=== PATIENT | female | born 1985 ===

== ENCOUNTER 2023-09-27 08:27 | Outpatient (CLI) | payer OTHER ==
--- NOTE | 2023-09-27 10:08 | MRI Report ---
PROCEDURE: Lumbar Spine WO INDICATIONS: L HIP PAIN, LOW BACK PAIN TECHNIQUE: Noncontrast sagittal T1 spin echo and T2 fast echo, sagittal STIR, axial T1 and T2 fast spin echo thr ough the lumbar spine. In cases with scoliosis, additional coronal T2 fast spin echo may be performe d. COMPARISON: None. FINDINGS: Image quality: Diagnostic, with note made of motion artifact. Alignment and Curvature: There is normal bony alignment. Bone Marrow: Marrow is of normal overall signal. No acute vertebral body compression fractures. Spinal Cord: Conus medullaris terminates at the T12-L1 level. Visualized cord demonstrates normal s ignal and size. Paraspinous Soft Tissues: No paravertebral masses. T12-L1: Normal in appearance. L1-L2: Normal in appearance. L2-L3: Normal in appearance. L3-L4: Normal in appearance. L4-L5: The disc height and disc signal are well preserved. Mild disc bulge is seen. There is a mini mal central disc protrusion. There is mild to moderate right-sided and mild left-sided facet hypertro phy. There is moderate bilateral neuroforaminal narrowing seen, left worse than right. No significant central canal narrowing is seen. L5-S1: The disc height and disc signal are well preserved. Mild disc bulge is seen. Mild facet hypertrophy is seen. No significant neural foraminal or central canal narrowing can be seen. IMPRESSION: Focal lower lumbar spine degenerative changes are seen, which are worst at the L4-L5 level. Reviewed by: Bryan Schneider MD on 09/27/2023 9:06 AM [facility] Approved by: Bryan Schneider MD on 09/27/2023 9:06 AM [facility] Station ID: [id number]
== END 2023-09-27 08:28 | disposition home or self-care (01) ==
LOC: DI 08:27
PROVIDERS: ATTEND Student in an Organized Health Care Education/Training Program
DX: M51.36 Other intervertebral disc degeneration, lumbar region (principal); M51.37 Other intervertebral disc degeneration, lumbosacral region; M47.816 Spondylosis without myelopathy or radiculopathy, lumbar region; M47.817 Spondylosis without myelopathy or radiculopathy, lumbosacral region; M48.061 Spinal stenosis, lumbar region without neurogenic claudication